=== PATIENT | male | born 1995 | race Caucasian/White ===

== ENCOUNTER 2024-06-26 09:18 | Outpatient (RCR) | payer MEDICARE, MEDICAID, SELFPAY ==
[2024-06-26 10:04] VITALS: BP 137/101; PULSE 71; RESP 18; TEMP 36.1; BMI 63.4
--- NOTE | 2024-06-26 11:08 | PCM.WC.HP ---
History of Present Illness Date of Service: 06/26/24 Chief Complaint: Right Posterior Knee Swelling and Drainage History of Wound: Mr. Will is a 28-year-old referred to the wound center by his PCP. He reports an over 1 year history of recurrent right posterior knee swelling and drainage. Believes it has been present for over a year. Was seen at the emergency room once, had incision and drainage. He states that prior to the drainage, he had a bedside ultrasound done at the ER. Closed up but then reopened again. Cultures done in the past positive for MRSA, has been on antibiotics. Some discomfort. No known history of diabetes. History of tobacco use. [facility] Medical History (Updated 06/26/24 @ 11:[address] Marianne Wei MD) Tobacco abuse MRSA infection Posterior right knee pain Localized skin mass, lump, or swelling Home Medications ?Medication ?Instructions ?Recorded ?Last Taken ?Type albuterol sulfate 90 mcg/actuation 1 - 2 puff inhalation Q6H PRN PRN 06/26/24 Unknown History aerosol inhaler wheezing ascorbic acid (vitamin C) 1,000 mg 1 g PO DAILY 06/26/24 Unknown History tablet (C-1000) carvedilol 6.25 mg tablet 6.25 mg PO BID 06/26/24 Unknown History cholecalciferol (vitamin D3) 25 25 mcg PO .week 06/26/24 Unknown History mcg (1,000 unit) capsule (Vitamin D3) epinephrine 0.3 mg/0.3 mL 1 mg IM DAILY 06/26/24 Unknown History injection, auto-injector furosemide 20 mg tablet 40 mg PO DAILY 06/26/24 Unknown History hydroxyzine pamoate 25 mg capsule 25 mg PO TID 06/26/24 Unknown History lisinopril 30 mg tablet 30 mg PO DAILY 06/26/24 Unknown History mupirocin 2 % topical ointment topical TID 06/26/24 Unknown History omega 9-sio-vqc-fish oil 1,200 mg 1 cap PO BID 06/26/24 Unknown History (144 mg-216 mg) capsule (Fish Oil) ondansetron 4 mg disintegrating 4 mg PO Q8H PRN PRN nausea/vomiting 06/26/24 Unknown History tablet pantoprazole 40 mg tablet,delayed mg PO 06/26/24 Unknown History release prazosin 1 mg capsule 3 mg PO QPM 06/26/24 Unknown History sertraline 100 mg tablet 200 mg PO DAILY 06/26/24 Unknown History sucralfate 1 gram tablet 1 g PO Q6H 06/26/24 Unknown History warfarin 5 mg tablet 5 mg PO DAILY 06/26/24 Unknown History Allergy/AdvReac Type Severity Reaction Status Date / Time bee venom protein (honey Allergy Mild Rash Verified 06/26/24 09:59 bee) (bee sting) ROS Constitutional Constitutional: Denies body ache(s), change in weight, chills, daytime sleepiness, excessive sweating, fatigue, frequent falls, headache(s) or stops breathing during sleep Eyes Eyes: Denies blindness, blind spots, bloody eye, change in vision, decreased night vision, discharge from eye(s) or dry eyes ENT HEENT: Denies abnormal hearing, bleeding gums, dysphagia, ear discharge, ear pain, epistaxis, facial pain, foreign body in nose, headache(s) or hearing loss Cardiovascular Cardiovascular: Denies abdominal bloating, abdominal edema, abdominal pain, bluish discoloration of hand/feet, chest pain at rest, claudication, cold extremities, cyanosis or diaphoresis Respiratory/Chest Respiratory/Chest: Denies change in mental status, change in phlegm color, chest congestion, difficulty clearing secretions, dry cough, excessive phlegm production or hemoptysis Gastrointestinal Gastrointestinal: Denies abdominal pain, anorexia, bloating, change in bowel habits, chewing difficulty, dysphagia or excessive flatus Genitourinary Genitourinary: Denies abdominal discomfort, anuria, difficulty urinating, flank pain or itching Musculoskeletal Musculoskeletal: Reports extremity pain; Denies atrophy, deformity, joint swelling, numbness, tingling or tremors Integumentary Integumentary: Reports erythema and non-healing lesions; Denies bleeding lesions, change in hair, change in pigmentation, hirsutism or jaundice Neurologic Neurologic: Denies abnormal gait, abnormal hearing, abnormal movements, abnormal speech, behavior changes, lack of coordination, loss of vision or memory loss Psychiatric Psychiatric: Denies auditory hallucinations, behavioral changes, cognitive impairment, depression, difficulty concentrating, hallucinations, homicidal ideation, irritability or memory loss Endocrine Endocrinology: Denies change in body appearance, deepening of the voice, fatigue, heat intolerance, increase in ring/shoe/hat size or palpitations Hematologic/Lymphatic Hematologic/Lymphatic: Denies easy bleeding or easy bruising Allergic/Immunologic Allergic/Immunologic: Denies itchy eyes, lip swelling, rhinitis, throat swelling, tongue swelling, hives or wheezing Vital Signs Vital Signs Vital Signs: 06/26/24 10:04 Temperature 97.0 F L Temperature Source Temporal Pulse Rate 71 Respiratory Rate 18 Blood Pressure 137/101 H Blood Pressure Mean 113 Blood Pressure Source Monitor Blood Pressure Position Sitting Blood Pressure Location Left Forearm Oxygen Delivery Method Room Air Weight Weight: 535 lb Body Mass Index (BMI) 63.4 Physical Exam Const alert, oriented x3 and no apparent distress General Appearance: cooperative and well kempt HEENT normocephalic, head/scalp atraumatic and hearing grossly normal bilaterally Eyes EOMs intact bilaterally General Eye: normal appearance of both eyes Neck full ROM and supple Resp normal respiratory effort, normal air movement and clear to auscultation bilaterally Effort and Inspection: able to speak in complete sentences Cardio regular rate, regular rhythm, S1 normal heart sound and S2 normal heart sound GI soft to palpation and non-tender Extremity Extremity Narrative: Well-circumscribed area of swelling appreciated in the right posterior knee. 3 punctum with serosanguineous drainage. Firm and tender on palpation. Neuro oriented x3, CN's II-XII intact bilaterally, moves all extremities and no focal motor deficits Psych mental status grossly normal, thought process normal, cooperative and affect normal Debridement Note Debridement Note Post-Debridement Measurements and Additional Note: Post-Debridement Measurements/Treatment WC - Nurse 1 - General Ulcer Assessment Start: 06/26/24 09:58 Freq: Status: Active Protocol: MARIA C.SO Activity Type Activity Date Activity User E-sign Co-sign Detail Recorded Client Recorded Date Recorded By Document 06/26/24 10:04 DS [id number] 06/26/24 10:05 DS Edit Result 06/26/24 10:04 DS (1) [id number] 06/26/24 10:07 DS (1) Temperature (97.8 F-99.1 F) => 97.0 F L Temperature Source => Temporal Pulse Rate (60-100) => 71 Pulse Location => Monitor Respiratory Rate (12-18) => 18 Respiratory rate source => Observation Oxygen Delivery Method => Room Air Blood Pressure (90/60-120/80) => 137/101 H Blood Pressure Mean => 113 Source => Monitor Position => Sitting Blood Pressure Location => Left Forearm 06/26/24 10:04 - Today's Visit Information Type of service Initial Visit Arrival Mode Ambulatory Patient Identification Verified (Name & Yes ) Patient Requires Transmission-Based No Precautions Safety Precautions Fall Prevention Height and Weight Height 6 ft 5 in Weight 535 lb Weight in Pounds 535.0 lbs Weight Measurement Method Estimated by Patient Body Mass Index (BMI) 63.4 BMI Classification Obese BSA - [place] 3.40 Vital Signs Temperature (97.8 F-99.1 F) 97.0 F L Temperature Source Temporal Pulse Rate (60-100) 71 Pulse Location Monitor Respiratory Rate (12-18) 18 Respiratory rate source Observation Oxygen Delivery Method Room Air Blood Pressure (90/60-120/80) 137/101 H Blood Pressure Mean 113 Source Monitor Position Sitting Blood Pressure Location Left Forearm History Since Last Visit- (Skip if this is Patient's initial visit) Left Footwear Regular Shoe Right Footwear Regular Shoe Pain Scale: 0-10 Numeric Is Patient Pain Free? No right post knee -Description Throbbing -Intensity 6 -Duration (hours) Chronic -Pain Behavior No Change in Behavior -Alleviating Factors/Interventions Will continue to monitor, Emotional Support - Nurse 1 - General Ulcer Measurement Start: 06/26/24 09:58 Freq: Status: Active Protocol: Activity Type Activity Date Activity User E-sign Co-sign Detail Recorded Client Recorded Date Recorded By Document 06/26/24 10:09 DS [id number] 06/26/24 10:23 DS 06/26/24 10:09 Wound Center Nurse 1 right posterior knee -Current Size (cm) - Length 2.0 -Current Size (cm) - Width 3.0 -Current Size (cm) - Depth 0.1 -Total Square Cm 6.00 -Date of Last Picture (Recall this 06/26/24 field) -Photo Taken Yes -Tunneling No -Undermining/Tunneling No -Circular Undermining No -Exudate Amt Small -Exudate Type Serosanguineous -Texture (Trisha-wound Skin Appearance) Assessed -Moisture (Trisha-wound Skin Appearance) Assessed -Color (Trisha-wound Skin Appearance) Assessed, Erythema -Temperature (Trisha-wound Skin No Abnormality Appearance) (Pt Warm) -Tenderness on Palpation (Trisha-wound Yes Skin Appearance) -Ulcer Cleansing Soap and Water -Foul Odor after Cleansing No -Anesthetic Used 5% Lidocaine Gel - Nurse 2 - General Ulcer CM Notes Start: 06/26/24 09:58 Freq: Status: Active Protocol: Activity Type Activity Date Activity User E-sign Co-sign Detail Recorded Client Recorded Date Recorded By Document 06/26/24 10:36 [id number] 06/26/24 10:42 06/26/24 10:36 Wound Center Nurse 2 -Time 10:38 -Correct Patient Yes -Correct Side, Site, Position Yes -Correct Procedure No -Procedure Performed No -Wound/Ulcer Outcome Healed- Epithelialized Pain Scale: 0-10 Numeric Is Patient Pain Free? Yes - Nurse 3 - General Ulcer D/C NN Start: 06/26/24 09:58 Freq: Status: Active Protocol: Activity Type Activity Date Activity User E-sign Co-sign Detail Recorded Client Recorded Date Recorded By Document 06/26/24 10:43 [id number] 06/26/24 10:44 06/26/24 10:43 Is Patient Pain Free? Yes - Visit Discharge Discharge Condition Stable Ambulatory Status Ambulatory Transportation Private Auto Charges/Coding Visit Charges Office Visits / Consults: [id number] OV L3 New 30min Assessment/Plan Assessment/Plan (1) Localized skin mass, lump, or swelling: CODE(S): R22.9 - Localized swelling, mass and lump, unspecified (2) Posterior right knee pain: CODE(S): M25.561 - Pain in right knee (3) MRSA infection: CODE(S): A49.02 - Methicillin resistant Staphylococcus aureus infection, unspecified site (4) Tobacco abuse: CODE(S): Z72.0 - Tobacco use PLAN: Plan Chronic right posterior knee pain and swelling. As above, has had incision and drainage done at the emergency room. Culture grew MRSA. Following I&D, closed up but swelling reaccumulated. Occasional drainage from punctum. No significant open area needing debridement here. I believe he would benefit from surgical excision and biopsy of the area. Other possibilities include Eccrine Porocarcinoma. Ultrasound ordered and referred to plastic surgery. Continue current plan per PCP. His questions were answered and he was advised to let us know if he has any further questions or concerns. Discharge from the wound center This note was generated with [employer] software. It may contain incorrect words, spelling, and punctuation that were not noted in checking the note before signing.
--- NOTE | 2024-07-01 09:16 | WC ---
PHOTO 06/26/24 RIGHT POST KNEE
--- NOTE | 2024-07-01 09:26 | WC ---
PHOTO 06/26/24 RIGHT POST KNEE
== END 2024-07-16 13:22 | disposition home or self-care (01) ==
LOC: WC 09:18
PROVIDERS: Visit Provider Internal Medicine
DX: M25.461 Effusion, right knee (principal); M25.561 Pain in right knee; M79.89 Other specified soft tissue disorders; Z72.0 Tobacco use; Z79.01 Long term (current) use of anticoagulants; Z79.899 Other long term (current) drug therapy; Z86.14 Personal history of Methicillin resistant Staphylococcus aureus infection
CPT/HCPCS: 99203; G0463